=== PATIENT | female | born 1960 | race Caucasian/White ===

== ENCOUNTER → 2016-05-29 | Day surgery (SDC) | payer BC ==
--- NOTE | 2016-05-28 16:57 | Pre-Procedure Note/Attestation ---
Pre-Procedure Note/Attestation Complete Prior to Procedure Planned Procedure: right Procedure Narrative: rt shoulder scope, sad, mini tisha, labral debridement vs repair, resection of loose fragment Indications for Procedure Pre-Operative Diagnosis: rt shoulder impingement, labral tear, loose fragment Attestation I attest that I discussed the nature of the procedure; its benefits; risks and complications; and alternatives (and the risks and benefits of such alternatives ), prior to the procedure, with the patient (or the patient's legal support representative). I attest that, if there was a reasonable possibility of needing a blood transfusion, the patient (or the patient's legal support representative) was given the [place] [employer] [facility] [employer] [facility] standardized written summary, pursuant to the Luis [place]aucoma Blood Safety Act ([place] Health and Safety Code # 1645, as amended). I attest that I re-evaluated the patient just prior to the surgery and that there has been no change in the patient's H&P, except as documented below:none LARISA HERNANDES May 28, 2016 16:57
[~2016-05-29] VITALS: Ht 167.6 cm; Wt 68.0 kg
[2016-05-29] VITALS (10 sets, daily range): BP systolic 93–139; BP diastolic 51–71
[~2016-05-29] MED LIST: Bupivacaine w/Epi 0.5% 30ml Vial INJ ONE; Clindamycin 600mg/D5W 50ml Pre-Mix IV ONE; D5 1/2NS 1,000 ML IV SCH; Dexamethasone 4mg/ml vial ONE; DiphenhydrAMINE 50mg/ml Inj IVP PRN; Glycopyrrolate 0.2mg/ml 1ml Vial ONE; HYDROmorphone 1mg/ml Carpuject SUBQ PRN; Ketorolac 30mg Inj IV PRN; LR 1000ml 1,000 ML IVLG SCH; LR 1000ml ONE; Meperidine 25mg/ml Inj IV PRN; Midazolam 2mg/2ml Inj ONE; NATURE-THROID32.5 MG PO; NS Irrig 4000ml IRRIG ONE; Neostigmine 1mg/ml 10ml Inj ONE; Norco 5mg/325mg tab ORAL PRN; Propofol 10mg/ml 20ml IV ONE; Tylenol #3 tab (300mg/30mg) ORAL PRN; Zemuron 50mg/5ml Inj IV ONE; ceFAZolin 1gm/50ml Premix 50 ML IV ONE; celeBREX 200mg Cap **SURGERY PATIENTS ONLY ORAL ONE; fentaNYL 100 mcg/2 mL IV ONE; fentaNYL 100 mcg/2 mL IV PRN; oxyCONTIN 20mg tab ORAL ONE
--- NOTE | 2016-05-29 11:39 | Anethesia Preoperative Eval ---
Anesthesia Pre-op PMH/ROS General Date of Evaluation: May 29, 2016 Time of Evaluation: 10:30 Anesthesiologist: Ella ASA Score: ASA 2 Mallampati Score Class I : Soft palate, uvula, fauces, pillars visible Class II: Soft palate, uvula, fauces visible Class III: Soft palate, base of uvula visible Class IV: Only hard plate visible Mallampati Classification: Class II Surgeon: Abi Diagnosis: Right shoulder pain Surgical Procedure: right shoulder arthroscopy, poss labral repair Anesthesia History: none Family History: no anesthesia problems Allergies: Coded Allergies: CLAVULANIC ACID (Verified Adverse Reaction, Unknown, "not feeling well", ) Medications: see eMAR Past Medical History Cardiovascular: Denies: CAD, HTN, [place], arrhythmia, other, valve dz Pulmonary: Denies: COPD, DREW, asthma, other Gastrointestinal/Genitourinary: Denies: CRI, ESRD, GERD, other Neurologic/Psychiatric: Denies: CVA, TIA, dementia, depression/anxiety, other Endocrine: Reports: hypothyroidism HEENT: Denies: [place]Y (L), [place] (R), cataract (L), cataract (R), glaucoma, other Hematology/Immune: Denies: DVT, anemia, bleeding disorder, other Musculoskeletal/Integumentary: Denies: DDD, DJD, OA, RA, edema, other PMH Narrative: Hypothyroidism PSxH Narrative: b/l ovarian cystectomy, breast needle localization Anesthesia Pre-op Phys. Exam Physician Exam Last Vital Signs Date Time Temp Pulse Resp B/P Pulse Ox O2 Delivery O2 Flow Rate FiO2 05/29/16 10:11 97.2 63 18 119/71 99 Room Air Constitutional: NAD Neurologic: CN 2-12 intact Cardiovascular: RRR Respiratory: CTA Gastrointestinal: S/NT/ND Airway Exam Mallampati Score: Class II MO: full ROM: full Teeth: intact Dentures: no lower, no upper BETSY GILLIS D.O. May 29, 2016 11:39
--- NOTE | 2016-05-29 12:11 | Brief Operative Note ---
Immediate Post Operative Note Operative Note Chief Complaint: rt shoulder pain Pre-op Diagnosis: rt shoulder impingement, labral tear, loose fragment Procedure: rt shoulder scope, sad, labral debridement, resection of loose fragment Post-op Diagnosis: same as pre-op Findings: consistent w/pre-op dx studies Surgeon: md Abi Footwear Stitcher: aicha murguia Anesthesiologist: md luisa Anesthesia: general Specimen: yes Complications: none Condition: stable Estimated Blood Loss: minimal Drains: none Implant(s) used?: No JAMIE MURGUIA May 29, 2016 12:11
--- NOTE | 2016-05-29 12:21 | Immediate Post-Op Evaluation ---
Immediate Post-Op Evalulation Immediate Post-Op Evalulation Procedure: Right shoulder arthroscopy, subacromial decompression, labral debridement Date of Evaluation: May 29, 2016 Time of Evaluation: 12:20 IV Fluids: 600ml Blood Products: none Estimated Blood Loss: minimal Urinary Output: due to void Blood Pressure Systolic: 97 Blood Pressure Diastolic: 71 Pulse Rate: 66 Respiratory Rate: 16 O2 Sat by Pulse Oximetry: 100 Temperature (Fahrenheit): 97 Pain Score (1-10): 0 Nausea: No Vomiting: No Complications none Patient Status: awake, reacts Hydration Status: adequate Drug: ancef 1gm Given Within 1 Hr of Incision: Yes Time Given: 11:15 BETSY GILLIS D.O. May 29, 2016 12:21
--- NOTE | 2016-05-30 02:37 | Operative Note - Dictated ---
DATE OF OPERATION: 05/29/2016 PREOPERATIVE DIAGNOSES: 1. Right shoulder mild to moderate arthritis. 2. Right shoulder loose fragment. 3. Right shoulder labral tearing. 4. Right shoulder impingement. POSTOPERATIVE DIAGNOSES: 1. Right shoulder large 1.5 cm loose osteochondral fragment in the shoulder. 2. 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 3. Right shoulder degenerative anterior as well as posterior labral tearing without significant detachment. 4. Right shoulder intact biceps tendon. 5. Right shoulder impingement on bursitis. 6. Right shoulder intact rotator cuff. PROCEDURES: 1. Right shoulder arthroscopy and extensive intra-articular shaving. 2. Right shoulder debridement and repair of the posterior as well as anterior labrum to a stable zone without anchor fixation. 3. Right shoulder resection of a large loose, 1.5 cm fragment from the subscapularis recess. 4. Right shoulder subacromial bursoscopy, bursectomy, and subacromial decompression. 5. Right shoulder mini-Mary procedure through resection inferior 30% of distal end of the clavicle for coplaning. SURGEON: Booker Alex M.D. RASPBERRY CHECKER: Tiffanie Colon PA-C. ANESTHESIOLOGIST: Dr. Jaramillo. ANESTHESIA: LMA anesthesia combined with interscalene block. EBL: Less than 20 mL. COMPLICATIONS: None. RASPBERRY CHECKER: [employer] Field Service Technician was present during the actual operative portion of the case and was important and essential part of the operation. During the operation, the assistant professor of forestry held and operated the arthroscopic camera for visualization, assisted by manipulating the arm to help with visualization, and helped with essential parts of the repair process as necessary such as operating surgical instruments under surgeon supervision, suture management, and wound closures. SURGICAL INDICATION: Patient is a 55-year-old female who sustained the above injury to her shoulder. The patient was treated non-operative initially, but this did not alleviate the patients symptoms. Therefore, after discussing all non-surgical and surgical options, and discussing all foreseeable risk and benefits of surgery, the patient opted for surgical treatment as described above. PATIENT POSITIONING: Patient was brought to the operating room table and was placed on the operating room table. All pressure points were well padded. General anesthesia was induced and patient was then placed in the lateral decubitus position. All pressure points were well padded again and an axillary roll was placed. Patient shoulder was then prepped and draped in the usual sterile fashion. Time out was performed and the appropriate preoperative antibiotic was given by the anesthesiologist. EXAMINATION OF SHOULDER UNDER ANESTHESIA: The shoulder was examined under anesthesia with all muscles well relaxed. The shoulder was forward flexed, abducted and was placed through full range of external and internal rotation. The anterior, posterior, and inferior stability of the shoulder was checked. The exam revealed no evidence of adhesive capsulitis and no evidence of instability. PORTAL PLACEMENT: The posterior portal was established 2 cm inferior and 1 cm medial to the edge of the posterior acromion. 1 cm skin incision was made using an eleven blade and using the blunt obturator, the cannula was gently placed through the capsule. The mid glenoid portal was established just lateral to the coracoid process under direct visualization. Direction of the cannula was first established using a spinal needle, and subsequently, the cannula was placed through the capsule with a blunt obturator. DIAGNOSTIC ARTHROSCOPY: The biceps tendon was probed and pulled through the joint for visualization. It appeared normal. The biceps anchor was palpated with a probe and was visualized. There was superior labral tearing that extended anteriorly. However, there was no large detachment of the biceps tendon from glenoid. The posterior labrum and axillary recess was visualized. There was a posterior labral tearing and this was degenerative in nature. There was synovitis of the posterior-inferior labrum as well as axillary recess. There was grade IV chondromalacia of the posterior inferior third of the glenoid. This was due to loss of cartilage in that area. The articular surface of the rotator cuff was visualized and probed next. There was some degenerative undersurface rotator cuff tear measuring 10%. However, this was not a large rotator cuff tear and this was not a full-thickness tear. The Humeral head articular surface was then visualized. There was some chondral damage of the posterior inferior and central portion of the humeral head corresponding to the glenoid chondral lesion. There was grade IV chondromalacia. Next the anterior labrum, middle gleno-humeral ligament, subscapularis tendon, and the anterior inferior gleno-humeral ligament were evaluated. There was some degenerative change of the anterior labrum and interior inferior glenohumeral ligament. The subscapularis was intact. At this point, the scope was moved to the mid glenoid portal and the posterior structures including the posterior labrum, posterior capsule and posterior cuff were visualized. There were some degenerative changes of the posterior labrum and some degenerative tearing, but there no large detachment from glenoid. There was a large 1.5 cm loose body in the subscapularis recess. This was an osteochondral loose fragment. The middle and anterior inferior glenohumeral ligament was visualized. These structures were completely normal. OPERATIVE DEBRIDEMENTS AND REPAIR: Care was given to all partial thickness tears and frayed structures in the shoulder joint. The frayed rotator cuff and labrum was debrided using a shaver initially through the anterior portal and subsequently through the posterior portal to complete the debridement. This allowed for smooth debridement of all affected structures and all loose fragments were removed. At this point, the loose fragment was then grasped using a grasper and was removed without any complications. This was sent to pathology for evaluation. DIAGNOSTIC BURSOSCOPY AND SUBACROMIAL DECOMPRESSION: The subacromion bursa was entered from the posterior portal. The anterior portal was established under the CA ligament using a switching stick. Subacromial arthroscopy was initiated. There was extensive bursitis and thickened and inflamed bursa tissue present. The CA ligament appeared to be scuffed and frayed. The shaver was placed through the anterior cannula and debridement of the hypertrophic bursa tissue was accomplished. Once visualization was adequate, a lateral portal was established using a blunt trochar in the mid portion of the acromion bone in the anterior-posterior direction and approximately 2 cm lateral to the lateral edge of the acromion. Using combination of shaver and electrocautery the CA ligament was released from the undersurface of the acromion and a complete bursectomy was accomplished. At this point, a subacromial decompression was performed using a erick initially taking off 5-8 mm of the anterolateral edge of the acromion from the lateral portal and viewing from the posterior portal. Then the lateral border of the undersurface of the acromion was decompressed to the same dept as the anterolateral edge. A posterior trough was then created in the acromion in line with the posterior edge of the clavicle. At this point, the scope was placed in the lateral portal and the subacromial decompression was performed from the posterior portal decompressing the undersurface of the acromion to dept of 5-8 mm. The decompression was performed anterior to the previously marked trough all the way medially to the level of the AC joint. At all times, care was given not to take off too much bone in order to avoid risk of fracture of the acromion. An excellent subacromial decompression was performed in this fashion. At this point, the bursal side of the rotator cuff was examined. All the bursa over the rotator cuff was removed and the rotator cuff was examined with a probe. The arm was placed into external rotation, neutral, and then internal rotation and there was no evidence of tear of the rotator cuff. The scope was then placed in the posterior portal and the subacromial decompression was rechecked to assure there is no area of bone spur that would be still impinging onto the rotator cuff. EVALUATION OF DISTAL CLAVICLE AND DISTAL CLAVICLE RESECTION: Care was given to the distal end of the clavicle. Using electrocautery and [place], the distal end of the bursa and soft tissue around the distal end of the clavicle was debrided and cleaned. Care was given not to inflict excessive trauma to the ligaments of the AC joint. The distal end of the clavicle appeared to have an inferior osteophyte extending down well bellow the level of the acromion at the level of the AC joint. This appeared to be impinging onto the supraspinatus muscle belly and the musculotendinous junction of the rotator cuff. A mini-Mary procedure was performed by using a erick to resect the inferior 30% of the distal end of the clavicle. This decompression allowed space for the inferior structures to slide without impingement. This co-plained the inferior edge of the distal clavicle with the inferior edge of the acromion. CONDITION AT DISCHARGE FROM OPERATING ROOM: The skin was re-approximated and sterile dressing and sling were applied. All lap counts and instrument counts were correct. Patient tolerated the procedure well without complications and was taken to the recovery room in stable conditions. Booker Alex M.D. DR: ZULEIMA JOB#: [id number] CC:
== END | disposition home or self-care (01) ==
LOC: SUR 09:44
DX: S43.431A Superior glenoid labrum lesion of right shoulder, initial encounter (principal); X58.XXXA Exposure to other specified factors, initial encounter; Y92.89 Other specified places as the place of occurrence of the external cause; Y99.9 Unspecified external cause status; M75.41 Impingement syndrome of right shoulder; M24.011 Loose body in right shoulder; M94.211 Chondromalacia, right shoulder; E03.9 Hypothyroidism, unspecified; J45.909 Unspecified asthma, uncomplicated; Z88.8 Allergy status to other drugs, medicaments and biological substances
CPT/HCPCS: 29823; 29824; 29826; J0690; J1100; J2250; J2405; J2704; J2710; J3010; J7120; 94003; 94150